=== PATIENT | female | born 1970 ===

== ENCOUNTER 2018-07-18 08:16 | Emergency (ER) | payer OTHER ==
[~2018-07-18] VITALS: Ht 165.1 cm; Wt 51.3 kg
[2018-07-18] MEDS ORDERED: ZOCOR20 MG (08:23)
[2018-07-18] MEDS ORDERED: ZANTAC150 M3 PO (10:24)
[2018-07-18] MEDS ORDERED: INTESTINEX680 M1 PO (10:24)
== END 2018-07-18 12:27 | disposition home or self-care (01) ==
LOC: ER 08:16
DX: K29.70 Gastritis, unspecified, without bleeding (principal); R11.11 Vomiting without nausea

== ENCOUNTER 2021-02-15 13:28 | Emergency (ER) | payer OTHER ==
[~2021-02-15] VITALS: Ht 165.1 cm; Wt 52.2 kg
[~2021-02-15 13:28] MED LIST: INTESTINEX680 M1 PO; ZANTAC150 M3 PO; ZOCOR20 MG
== END 2021-02-15 15:36 | disposition home or self-care (01) ==
LOC: ER 13:28
DX: S61.226A Laceration with foreign body of right little finger without damage to nail, initial encounter (principal); W26.0XXA Contact with knife, initial encounter; Y93.89 Activity, other specified; Y92.010 Kitchen of single-family (private) house as the place of occurrence of the external cause; Y99.8 Other external cause status